=== PATIENT | female | born 1950 | race Caucasian/White ===

== ENCOUNTER → 2017-01-01 | Day surgery (SDC) | payer MEDICARE, BC ==
[2016-12-29 11:56] LABS: BASOPHILS # (AUTO) 0.1 (0.0-0.1); BASOPHILS % 0.6 % (0.0-1.0); EOSINOPHILS # (AUTO) 0.1 (0.0-0.4); EOSINOPHILS % 0.7 % (0.0-6.0); HEMATOCRIT 40.2 % (34.2-44.1); HEMOGLOBIN 13.7 g/dL (12.0-16.0); LYMPHOCYTES # (AUTO) 2.5 (1.0-3.2); LYMPHOCYTES % 31.2 % (18.0-39.1); MEAN CORPUSCULAR HEMOGLOBIN 32.5 pg (28-32); MEAN CORPUSCULAR HGB CONC 34.1 g/dL (31-35); MEAN CORPUSCULAR VOLUME 95.5 fL (81-99); MONOCYTES # (AUTO) 1.2 (0.2-0.8); MONOCYTES % 14.1 % (4.4-11.3); NEUTROPHILS # (AUTO) 4.3 (2.1-6.9); NEUTROPHILS % 52.3 % (38.7-80.0); PLATELET COUNT 234 x10e3/uL (140-360); RED BLOOD COUNT 4.21 x10e6/uL (3.6-5.1); RED CELL DISTRIBUTION WIDTH 14.1 % (11.7-14.4)
[~2017-01-01] MED LIST: ALPHA LIPOIC A600 MG PO; AMARYL2 MG PO; ATORVASTATIN CA20 MG PO; ATORVASTATIN PO; CLONIDINE PO; CLONIDINE1 EAC1 PO; CO Q-10 100 MG1 EACH PO; COQ-10100 MG PO; COQ10 SG 100 S1 EACH PO; CYMBALTA30 MG PO; ESTRADIOL1 MG PO; EXFORGE HCT 5-1 EACH PO; FENOFIBRATE; FENOFIBRATE PO; FENTANYL CITRATE/PF 100MCG/2 ML INJ ONE; FISH OIL500 M1 PO; FUROSEMIDE20 MG PO; GABAPENTIN100 MG PO; GABAPENTIN300 MG PO; HYDRALAZIN20 MG/1 ML PO; HYDRALAZINE HCL50 MG PO; HYDROCODON-ACE1 EA11 PO; HYDROCODON-ACE1 EA12 PO; JANUVIA100 MG PO; KLOR-CON 88 MEQ PO; LEVOTHYROXINE100 MCG PO; LIDOCAINE HCL 2% LOCAL INJ 5 ML SDV VIAL INJ ONE; LOSARTAN PO; LOSARTAN POTASS25 MG PO; METOPROLOL TART25 MG PO; METRONIDAZOLE GEL 1% TP; MIDAZOLAM HCL 2 MG/2 ML VIAL ONE; MONTELUKAST SOD10 MG PO; MORPHINE SULFAT15 M1 PO; MORPHINE SULFAT30 M2 PO; MORPHINE SULFATE 5 MG/ML VIAL ONE; MULTIVITAMIN PO; NASONEX17 GM; NEXIUM40 MG PO; NORCO 10-325 T1 EACH PO; NORCO 5-325 TA1 EACH PO; NORCO 7.5-3251 EACH PO; PANTOPRAZOLE PO; PANTOPRAZOLE SO40 MG PO; PREDNISONE PO; PROBIOTIC PO; PROPOFOL IV EMULSION 10 MG/ML 50 ML VIAL ONE; QUININE SULFAT324 MG PO; QVAR7.3 G1; SINGULAIR10 MG PO; TIZANIDINE HCL4 MG PO; TRILIPIX135 MG PO; VITAMIN B 12 INJ; VITAMIN B12 SL; VITAMIN C; VITAMIN D32000 UNI1 PO; VITAMIN D350000 UNIT PO; VOLTAREN PO; VOLTAREN100 GM TD; ZANTAC300 MG PO; ZINC50 M1 PO; ZOFRAN ODT4 MG PO; ZYRTEC PO; [UNRECOGNIZED DRUG - MIXTURE]; [UNRECOGNIZED DRUG - OTHER]; [UNRECOGNIZED DRUG - OTHER] OS
[2017-01-01 13:59] LABS: WBC,FECAL (FECAL LACTOFERRIN) NEGATIVE (NEGATIVE)
--- NOTE | 2017-01-01 14:32 | Operative Report ---
DATE OF PROCEDURE: January 01, 2017 REFERRING PHYSICIAN: Dr. Avila Spence. PROCEDURE PERFORMED: Colonoscopy and polypectomy. INDICATIONS FOR PROCEDURE: Colorectal cancer screening. Personal history of colon polyps. Diarrhea. MEDICATION: Patient was done under MAC. Please see anesthesiologist's note. PROCEDURE: With the patient in the left lateral decubitus position, the flexible fiberoptic Olympus colonoscope was inserted into the rectum with ease and advanced all the way to the cecum. It was then withdrawn slowly. Mucosa overlying the cecum appeared to be within normal limits. One polyp was snared from the ascending colon. The transverse colon appeared to be within normal limits. Diverticular disease was noted to involve the descending and the sigmoid colon. One polyp was hot biopsied from the sigmoid colon. One polyp was hot biopsied from the proximal rectum. The scope was then retroflexed into the distal rectum and small internal hemorrhoids were noted, none of which was actively bleeding. The scope was then straightened out. The rectosigmoid area as well as the distal rectal area were decompressed. The scope was subsequently withdrawn. Patient tolerated procedure well. Of note, procedure was carried out with the EGD scope as the regular colonoscope could not traverse the sharply angulated area in the distal sigmoid colon. IMPRESSION: 1. Ascending colon polyp snared. 1. Sigmoid colon polyp hot biopsied. 2. Diverticulosis. 3. Rectal polyp hot biopsied. 4. Internal hemorrhoids, none actively bleeding. PLAN: Follow up histology. Initiate VSL#3 one p.o. daily. Patient will need a followup colonoscopy in 3 years. Job#: [id number] EV cc:AVILA SPENCE MD
[2017-01-01 15:02] LABS: C DIFFICILE TOXIN A&B AMP PROB NEGATIVE (NEGATIVE)
== END | disposition home or self-care (01) ==
LOC: OR 08:43
PROVIDERS: ATTEND Internal Medicine Gastroenterology
DX: R19.7 Diarrhea, unspecified (principal); D12.2 Benign neoplasm of ascending colon; D12.5 Benign neoplasm of sigmoid colon; K62.1 Rectal polyp; K64.8 Other hemorrhoids; K57.30 Diverticulosis of large intestine without perforation or abscess without bleeding; K21.0 Gastro-esophageal reflux disease with esophagitis; J44.9 Chronic obstructive pulmonary disease, unspecified; I10 Essential (primary) hypertension; E11.9 Type 2 diabetes mellitus without complications; E03.9 Hypothyroidism, unspecified; G89.29 Other chronic pain; F32.9 Major depressive disorder, single episode, unspecified; F41.9 Anxiety disorder, unspecified; Z01.812 Encounter for preprocedural laboratory examination; Z68.35 Body mass index [BMI] 35.0-35.9, adult
CPT/HCPCS: 36415; 45384; 45385; 83630; 83993; 85025; 87045; 87177; 87328; 87493; 88305; J2001; J2250; J2270; 45378

== ENCOUNTER → 2019-05-01 | Day surgery (SDC) | payer MEDICARE, BC ==
[2019-04-27 11:16] LABS: BASOPHILS % 0.4 % (0.0-1.0); EOSINOPHILS % 0.8 % (0.0-6.0); HEMOGLOBIN 12.1 g/dL (12.0-16.0); LYMPHOCYTES # (AUTO) 1.2 (1.0-3.2); LYMPHOCYTES % 22.5 % (18.0-39.1); MEAN CORPUSCULAR HGB CONC 32.7 g/dL (31-35); MEAN CORPUSCULAR VOLUME 94.9 fL (81-99); MONOCYTES # (AUTO) 0.3 (0.2-0.8); NEUTROPHILS # (AUTO) 3.7 (2.1-6.9); NEUTROPHILS % 70.3 % (38.7-80.0); PLATELET COUNT 176 x10e3/uL (140-360); RED CELL DISTRIBUTION WIDTH 13.9 % (11.7-14.4)
[2019-04-27 11:40] LABS: ALANINE AMINOTRANSFERASE 38 IU/L (0-55); ALBUMIN 4.2 g/dL (3.5-5.0); ALBUMIN/GLOBULIN RATIO 1.4 (0.8-2.0); ALKALINE PHOSPHATASE 92 IU/L (40-150); ANION GAP 17.7 mmol/L (8-16); BLOOD UREA NITROGEN 24 mg/dL (7-26); BUN/CREATININE RATIO 32 (6-25); CALCIUM 11.1 mg/dL (8.4-10.2); CARBON DIOXIDE 17 mmol/L (22-29); CHLORIDE 105 mmol/L (98-107); CREATININE, SERUM 0.76 mg/dL (0.57-1.11); EST GLOMERULAR FILTRATION RATE > 60 ML/MIN (60-); GLUCOSE 168 mg/dL (74-118); POTASSIUM 4.7 mmol/L (3.5-5.1); SODIUM 135 mmol/L (136-145)
[~2019-05-01] VITALS: Ht 152.4 cm; Wt 79.4 kg
[2019-05-01] VITALS (7 sets, daily range): BP systolic 117–167; BP diastolic 64–86
[~2019-05-01] MED LIST changes: +ALPRAZOLAM 0.5 MG TAB ONE; +AMLODIPINE BESYL5 MG PO; +ASPIR 8181 MG PO; +BACLOFEN10 MG PO; +CLOPIDOGREL75 MG PO; +DIPHENHYDRAMINE HCL 25 MG CAP ONE; +FENOFIBRATE145 MG PO; +FLUOROMETHOLONE5 ML OS; +FORTEO2.4 ML SC; +HEPARIN SOD (PORCINE) 1000 UNIT/ML 30ML ONE; +HEPARIN SOD/SOD CHLORIDE 2,000 ML ONE; +IOPAMIDOL 370 MG/ML 200 ML INFUS..BTL INJ ONE; +LIDOCAINE HCL 2% LOCAL 20 ML VIAL ONE; -LIDOCAINE HCL 2% LOCAL INJ 5 ML SDV VIAL INJ ONE; +METFORMIN HCL500 MG PO; -MORPHINE SULFATE 5 MG/ML VIAL ONE; +OMEGA XL PO; -PROPOFOL IV EMULSION 10 MG/ML 50 ML VIAL ONE; +SODIUM CHLORIDE 0.9% 1000ML 1,000 ML ONE; +TURMERIC538 MG PO; +VITAMIN B-121000 MCG PO
--- OUTSIDE RECORDS SUMMARY | 2019-05-01 11:38 | XMS REPORT | Summary of Care ---
Author Author [facility] Organization [facility] Address Unknown Phone Unavailable Care Team Providers Care Rag Sorter And Cutter Name Role Phone Yasmany Woods MD PCP Reason for Visit * Reason Comments Eye Problem Encounter Details Care Team Description Date Type Department Josh Meza MD [address] [place] [address] Eye Problem 10/16/2018 Office Visit Department of Ophthalmology [address] [place] [address] [phone] Allergies Comments Active Allergy Reactions Severity Noted Date Mold 01/02/2013 Sulfa Antibiotics 01/02/2013 Omalizumab 08/03/2016 documented as of this encounter (statuses as of 10/16/2018) Medications End Date Status Medication Sig Dispensed Refills Start Date Active LEVOTHYROXINE SODIUM 1 Tab daily. 0 unknown dosage per patient Active tizanidine (ZANAFLEX) 6 Take 6 mg by 0 MG capsule mouth 3 times daily. Active fexofenadine (MOO) Take 1 Tab by 30 Tab 5 180 MG tablet mouth daily. 0 Active duloxetine (CYMBALTA) 30 Take 30 mg by 0 MG capsule mouth daily. Active atorvastatin (LIPITOR) 40 Take 40 mg by 0 MG tablet mouth daily. Active hydrocodone-acetaminophen Take 1 Tab by 0 (NORCO) 5-325 mg tablet mouth every 4 hours as needed. Active hydrALAZINE (APRESOLINE) Take 25 mg by 0 25 MG tablet mouth 3 times daily. Active nystatin (MYCOSTATIN) Apply 15 g 3 ointment topically 5 daily Active gabapentin (NEURONTIN) Take 100 mg 0 100 MG capsule by mouth 3 times daily. Active ondansetron (ZOFRAN-ODT) Take 8 mg by 0 8 mg disintegrating mouth every 8 tablet hours as needed for Nausea. Active losartan (COZAAR) 100 MG Take 100 mg 0 tablet by mouth daily. Active Quinine Sulfate 324 MG Take by 0 CAPS mouth. Active montelukast (SINGULAIR) Take 1 Tab by 30 Tab 3 10 MG tablet mouth daily. 6 Active Budesonide-Formoterol Inhale 2 1 Inhaler 6 Fumarate (SYMBICORT) Puffs by 6 160-4.5 MCG/ACT AERO mouth two times daily. Active Cetirizine HCl (ZYRTEC Take by 0 OR) mouth. Active SITagliptin Phosphate Take by 0 (JANUVIA OR) mouth. Active morphine 15 MG TBCR Take 1 Tab by 0 mouth daily. Active fluorometholone (FML) 0.1 INSTILL 1 5 mL 0 % ophthalmic suspension DROP IN LEFT 8 EYE DAILY Active budesonide (PULMICORT) Take 2 mL by 120 mL 3 0.5 MG/2ML nebulizer nebulization 8 suspensionIndications: two times Mild intermittent asthma daily. without complication, Chronic bronchitis, unspecified chronic bronchitis type Active metoprolol (LOPRESSOR) 25 Take 50 mg by 0 MG tablet mouth two times daily. Active BACLOFEN OR Take by 0 mouth 3 times daily. Active budesonide (PULMICORT) Take 2 mL by 60 mL 3 0.25 MG/2ML nebulizer nebulization 9 suspensionIndications: two times Mild intermittent asthma daily. without complication Active albuterol (PROVENTIL) Take 1 Ampule 50 Ampule 3 (2.5 mg/3 mL) 0.083% by 9 nebulizer nebulization solutionIndications: Mild every 6 hours intermittent asthma as needed for without complication Wheezing. Active albuterol (PROAIR HFA) Inhale 2 8.5 g 3 108 (90 base) mcg/act Puffs by 9 inhalerIndications: Mild mouth every 4 intermittent asthma hours as without complication needed for Wheezing. Active predniSONE (DELTASONE) 20 Take 1 Tab by 15 Tab 1 MG tabletIndications: mouth daily. 9 Chronic bronchitis, unspecified chronic bronchitis type Active levofloxacin (LEVAQUIN) Take 1 Tab by 10 Tab 1 750 MG tabletIndications: mouth daily. 9 Chronic bronchitis, unspecified chronic bronchitis type Active fluconazole (DIFLUCAN) Take 1 Tab by 10 Tab 1 150 MG tabletIndications: mouth daily. 9 Thrush Active fluorometholone (FML) 0.1 Place 1 Drop 10 mL 2 % ophthalmic suspension into the left 9 eye daily. Active metformin (GLUCOPHAGE) Take 1 Tab by 0 500 MG tablet mouth at 9 bedtime. 10/16/2018 Discontinued glimepiride (AMARYL) 1 MG Take 2 mg by 0 tablet mouth every morning. 10/16/2018 Discontinued aspirin 81 MG tablet Take 81 mg by 0 mouth daily. 10/16/2018 Discontinued difluprednate (DUREZOL) Place 1 Drop 5 mL 2 0.05 % ophthalmic into the 8 emulsion right eye 3 times daily. 10/16/2018 Discontinued trimethoprim-polymyxin b Place 1 Drop 10 mL 0 (POLYTRIM) ophthalmic into the 8 solution right eye 3 times daily. 10/16/2018 Discontinued Bromfenac Sodium Apply 1 Drop 3 mL 1 (PROLENSA) 0.07 % SOLN to eye daily. 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 Will review Dr Terry's consultation. 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 Allergic rhinitis 04/28/2010 Last Assessment & Plan: Stable, controlled on daily nasal steroids and special diet. No change in therapy. Follow-up with Dr Lopes as directed. Sinusitis, chronic 02/12/2010 Last Assessment & Plan: Much improved s/p sinus surgery. Continue present management. DYSPAREUNIA 06/13/2007 POSTMENOPAUSAL HORMONE REPLACEMENT THERAPY 10/19/2001 HYPERTENSION, BENIGN ESSENTIAL Chronic bronchitis Last Assessment & Plan: Mild exacerbation- taper steroids levaquin Stress management Next visit check IgE documented as of this encounter (statuses as of 10/16/2018) Resolved Problems Problem Noted Date Resolved Date Asthma, intrinsic 04/28/2010 05/13/2010 Last Assessment & Plan: Stable on current regimen. No change in therapy, continue the Singulair, Qvar or Pulmicort nebs daily and albuterol prn. WELL WOMAN 12/03/2005 02/12/2010 SCREENING FOR MALIGNANT NEOPLASM, VAGINA 12/03/2005 02/12/2010 SCREENING MAMMOGRAM NEC 12/03/2005 02/12/2010 SCREEING FOR OSTEOPOROSIS 12/03/2005 02/12/2010 SCREEING FOR MALIG NEOPLASM, INTESTINE NOS 03/24/2004 02/12/2010 Examination, gynecological 10/20/2001 02/12/2010 ASTHMA, INTRINSIC W/(ACUTE) EXACERBATION 04/28/2010 Last Assessment & Plan: Acute episode suspect URI induced, improving symptomatically. Slow wean the prednisone by 10 mg every 3 days. Complete the oral atb. Hycotuss syrup 1 tsp po 1-3 times daily for the next 3-4 days. Continue the Singular and change to the Advair 500/50 for 2 weeks then back to the Qvar. Pt will contact the office next week with update. Will discuss return appt then. documented as of this encounter (statuses as of 10/16/2018) Immunizations Name Administration Dates Next Due Influenza (whole) 12/21/2013, 12/12/2009 Swine Flu (H1N1) 02/13/2009 documented as of this encounter Social History Date Tobacco Use Types Packs/Day Years Used Never Smoker Smokeless Tobacco: Never Used Drinks/Week oz/Week Comments Alcohol Use No Sex Assigned at Date Recorded Not on file Industry Job Start Date Occupation Not on file Not on file Not on file Travel End Travel History Travel Start No recent travel history available. documented as of this encounter Last Filed Vital Signs Not on filedocumented in this encounter Progress Notes * Josh Meza MD - 10/16/2018 10:00 AM CDT PROGRESS NOTE: Summary: This patient is undergone a Phaco DMEK in the left eye in 2011 with a redo in 20 16 with a DMEK and then a read on the next year 2016 with a DSEK. She's also un dergone cataract surgery in the right eye back in 2017. I saw her most recently in October of last year for 3 week postop cataract visit in the right eye. At t hat visit she was doing well with a visual acuity corrected to 20/20 both eyes t he implant lens in the right eye was well centered and the fundus was normal She did well until a the end of August when she noted sudden onset of floaters in the left eye and was seen by Dr. Johnson. At that visit she continued to be 20/20 both eyes, pseudophakia both eyes, showed a Blakely ring in both eyes and had a n ormal depressed fundus exam with no detachments and no tears. She returns today for check and noting no change. HPI SY. 68 Y.O female is here for yearly pseudophakic eval OU. Pt states when looking straight somethings she sees a white wall with a corby ck dot in the left eye and It has reduced . Pt states vision is the same. Denies pain + FB OS Ocular Meds: FML QD, OS ATS OU PRN POHX: pseudophakic OD DMEK OS Last edited by Sita Corona, GIFTY on 10/16/2018 11:04 AM. (History) IMPRESSION: #1. PVD both eyes stable #2 status post DSEK OS doing well #3 pseudophakia both eyes PLAN: #1. New spectacle prescription provided per patient request #2 return in one year ATTESTATIONS: I have personally interviewed and examined the patient. I have reviewed the PMH, SH, FHX, ROS, MEDS, ALLERGIES and TECH NOTE, and have updated the computerized patient record appropriately. The review of systems is negative unless document ed otherwise in the medical record. In the event that there is documentation by the resident or fellow in the medical record, I agree with the resident/fellow's assessment and plan. Any exceptions are noted in my assessment & plan.The risks, benefits, and alternatives of treatment were discussed with the patient ( & family, If present). All questions regarding diagnosis and treatment were answered to the patient's satisfaction.This document has been prepared with the assistance of voice recognition software. Despite proof reading, some errors may have occurred.- please forgive mis-transcriptions, mis-heard words, or errors documented in this encounter Plan of Treatment Care Team Description Date Type Specialty Terrence Loza MD [address] [id number] 05/29/2019 Office Visit Pulmonology Health Maintenance Due Date Last Done Comments COLON CANCER SCREENIN1949 COLONOSCOPY MAMMOGRAM ANNUAL 1950 MEDICARE AWV 1950 TETANUS SHOT (ADULT) 1964 BMI FOLLOW UP PLAN 08/28/1967 HEPATITIS C SCREENING 08/28/1967 FALL SCREEN 2014 PNEUMOVAX >=65 (PPSV23) 2014 PREVNAR >=65 (PCV13) 2014 FLU VACCINE > 6 MONTHS 10/12/2018 01/24/2018 (Declined), 12/21/2013, 12/12/2009 OSTEOPOROSIS SCREENING Completed 09/07/2018, 09/07/2018 documented as of this encounter Implants Device Identifier Shelf Expiration Date Model / Serial / Lot Implanted Type Area Manufactur er 11/11/2011 / [id number] / Cornea Tissue - [id number] Left: Cornea [employer] Implanted: Qty: 1 on 11/03/2011 at [facility] 09/10/2014 / [id number] / Iol - [id number] [employer] One Piece - Left: Eye ROBERT [id number] Implanted: Qty: 1 on 11/03/2011 at [facility] [place] documented as of this encounter Results Not on filedocumented in this encounter Visit Diagnoses Diagnosis Posterior vitreous detachment, bilateral - Primary Pseudophakia Lens replaced by other means History of Descemet membrane endothelial keratoplasty (DMEK) documented in this encounter Insurance Type Payer Benefit Subscriber ID Effective Phone Address Plan / Dates Group Medicare MEDICARE MEDICARE xxxxxxxxxxx 2014-P [id number] [place] [address] Medicare BLUE CROSS BLUE SHIELD MEDICARE xxxxxxxxxxxx 2016-P [address] [id number] [place] [address] documented as of this encounter Advance Directives Patient Business Segment Manager Explanation Type Date Recorded Advance Directives and Living Will Power of Social Science Instructor
--- OUTSIDE RECORDS SUMMARY | 2019-05-01 11:38 | XMS REPORT | Summary of Care ---
Author Author [facility] Unknown Address Unknown Phone Unavailable Care Team Providers Care Lure Maker Name Role Phone LILI DENISE MD Unavailable Unavailable Unavailable Unavailable Functional Status Name Dates Details Functional status health issues are not documented Status: Name Dates Details Cognitive status health issues are not documented Status: Problems Name Dates Details Active medical history not documented Status: Medications Name Dates Details Medications not documented Allergies and Adverse Reactions Name Dates Details Allergy history not documented Status: Procedures Procedure Dates Details Initial Promis 29 Survey Date: 14-Apr-2018 Post Op Promis 29 Survey Date: 02-May-2018 Post Op Promis 29 Survey Date: 29-May-2018 Immunization Name Dates Details Immunizations not documented Social History Name Dates Details Unknown if ever smoked Vital Signs Date Test Result Details No Known Vitals to report Results Date Description Value Details [id number] [QLH] CBC (INCLUDES DIFF/PLT) WBC 7.8 {K/CMM} Range: 3.7-10.4 RBC 3.43 {M/CMM} (Below low threshold) Range: 4.20-5.40 Hgb 11.1 g/dl (Below low threshold) Range: 12.0-16.0 Hct 33.8 % (Below low threshold) Range: 36.0-48.0 MCV 98.5 fL (Above high threshold) Range: 80.0-98.0 MCH 32.2 pg (Above high threshold) Range: 27.0-31.0 MCHC 32.7 g/dl Range: 32.0-36.0 RDW 15.4 % (Above high threshold) Range: 11.5-14.5 Platelet 407 {K/CMM} Range: 133-450 Mean Platelet Volume 8.1 fL Range: 7.4-10.4 [id number] [QLH] CMP W/EGFR Sodium Level 139 {mEq/l} Range: 135-145 Potassium Level 5.0 {mEq/l} Range: 3.5-5.1 Chloride Level 107 {mEq/l} Range: 95-109 Carbon Dioxide 25 {mEq/l} Range: 24-32 AGAP 12.0 {mEq/l} Range: 10.0-20.0 Glucose Lvl 70 mg/dl Range: 70-99 Comments: Adult reference range values reflect the clinical guidelinesof the [employer]. Creatinine Lvl 1.00 mg/dl Range: 0.50-1.40 Blood Urea Nitrogen 22 mg/dl Range: 7-22 BUN/Creatinine Ratio 22 Range: 6-25 Total Protein 7.4 g/dl Range: 6.4-8.4 Albumin Lvl 3.8 g/dl Range: 3.5-5.0 Globulin 3.6 g/dl Range: 2.7-4.2 A/G Ratio 1.1 Range: 0.7-1.6 Calcium Level Total 8.5 mg/dl Range: 8.5-10.5 ALT 43 u/l Range: 0-65 AST 57 u/l (Above high threshold) Range: 0-37 Alk Phos 74 u/l Range: 39-136 Bili Total 0.8 mg/dl Range: 0.2-1.3 eGFR 58 {ML/MIN/1.7} Comments: The eGFR is calculated using the CKD-EPI formula. In most young, healthyindividuals the eGFR will be >90 mL/min/1.73m2. The eGFR declines with age. AneGFR of 60-89 may be normal in some populations, particularly the elderly, forwhom the CKD-EPI formula has not been extensively validated. Use of the eGFR isnot recommended in the following populations:Individuals with unstable creatinine concentrations, including patients and those with serious co-morbid conditions.Patients with extremes in muscle mass or diet.The data above are obtained from the National Kidney Disease Education Program(NKDEP) which additionally recommends that when the eGFR is used in patientswith extremes of body mass index for purposes of drug dosing, the eGFR shouldbe multiplied by the estimated BMI. [id number] [[facility]] Differential Segmented Neutrophils 60.4 % Range: 45.0-75.0 Monocytes 12.4 % (Above high threshold) Range: 2.0-12.0 Lymphocytes 24.8 % Range: 20.0-40.0 Eosinophils 2.0 % Range: 0.0-4.0 Basophils 0.4 % Range: 0.0-1.0 Segs-Bands # 4.7 {K/CMM} Range: 1.5-8.1 Lymphocytes # 1.9 {K/CMM} Range: 1.0-5.5 Monocytes # 1.0 {K/CMM} (Above high threshold) Range: 0.0-0.8 Eosinophils # 0.2 {K/CMM} Range: 0.0-0.5 RBC Morphology Normal Plt Morphology Normal [id number] [U] XRAY KNEE 3 VWS RIGHT [id number] XR KNEE 3 VWS RIGHT Images acquired, not reported on this accession number. Plan of Care Name Dates Details Planned Observations Planned Goals not documented Instructions Name Dates Details Instructions not documented Encounters Appointment; KEVIN COLEMAN, PKeya Encounter Diagnosis: Problem not documented On: 09-Feb-2018 11:30 Appointment; ILLI HASKINS M.D. Encounter Diagnosis: Problem not documented On: 25-Apr-2018 14:00 Appointment; KEVIN COLEMAN, PKenAKen Encounter Diagnosis: Problem not documented On: 05-May-2018 11:15 Appointment; LILI HASKINS M.D. Encounter Diagnosis: Problem not documented On: 31-May-2018 13:15
--- OUTSIDE RECORDS SUMMARY | 2019-05-01 11:38 | XMS REPORT ---
[facility] Address Unknown Phone Unavailable Care Team Providers Care Home Visitor Name Role Phone NIKKO DAVIS Unavailable Unavailable Timothy SHELLEY Unavailable Unavailable VAISHNAVI LONGORIA Unavailable Unavailable Payers Payer Name Policy Type Policy Number Effective Date Expiration Date Problems This patient has no known problems. Allergies, Adverse Reactions, Alerts Allergy Name Allergy Type Status Severity Reaction(s) Onset Date Inactive Date Treating Clinician Comments No Known Contrast Allergies DA Active U 2008-06-05 00:00:00 No Known Drug Allergies DA Active U 2008-06-05 00:00:00 No Known Food Allergies DA Active U 2008-06-05 00:00:00 No Known Other Allergies DA Active U 2008-06-05 00:00:00 No Known Drug Intolerances DA Active U 2001-08-25 00:00:00 Medications This patient has no known medications. Results Test Description Test Time Test Comments Text Results Atomic Results Result Comments MAMMOGRAPHY DIGITAL SCR BILAT 2019-03-12 09:33:00 [place] [address] Patient Name: ZURDO BERMUDEZ MR #: [id number] : 1950 Age/Sex: 68/F Req #: [id number] Adm Physician: Ordered by: NIKKO DAVIS MD Report #: [id number] Location: MAMMO Room/Bed: Procedure: [id number] MG/MAMMOGRAPHY DIGITAL SCR BILAT Exam Date: 03/12/19 Exam Time: 0850 REPORT STATUS: Signed #[id number] - MGSCRBIL #BILATERAL DIGITAL SCREENING MAMMOGRAM WITH CAD: 03/12/2019 CLINICAL: Routine screening. Comparison is made to exams dated: 03/08/2018 mammogram and 02/15/2017 mammogram - [facility]. The tissue of both breasts is heterogeneously dense. This may lower the sensitivity of mammography. Current study was also evaluated with a Computer Aided Detection (CAD) system. There are benign calcifications in caro th breasts. There also are benign vascular calcifications in the right breast. Additionally there are benign lymph nodes in the right breast. No significant masses, calcifications, or other findings are seen in either breast. There has been no significant interval change. IMPRESSION: BENIGN There is no mammographic evidence of malignancy. A 1 year screening mammogram is recommended. The patient will be notified by letter of the results. DELPHINE madrid/shemar:03/26/2019 12:06:10 Java Application Engineer: Any LAZARO)(Jamie), [facility] letter sent: Compared to Prior B9 Mammogram BI-RADS: 2 Benign Dictated By: DELPHINE FERRELL MD 1206 Transcribed By: SHEMAR on 03/26/19 1206 COPY TO: NIKKO DAVIS MD POCT-GLUCOSE METER 2017-09-21 06:38:00 POC-GLUCOSE METER (BEAKER) (test wzex=2127) 135 mg/dL 70-110 TESTED AT [address] [address] POCT-GLUCOSE ROUYR2754-19-30 08:13:00* Test Item Value Reference Range Comments POC-GLUCOSE METER (BEAKER) (test bbag=7401) 199 mg/dL 70-110 TESTED AT [address] [address] [address] CERVICAL SPINE WO [facility] [address] [place], [place] [address] Patient Name: ZURDO BERMUDEZ MR #: [id number] : 1950 Age/Sex: 66/F Req #: [id number] Adm Physician: Ordered by: VAISHNAVI LONGORIA MD Report #: [id number] Location: MRI Room/Bed: Procedure: [id number] CT/CT CERVICAL SPINE WO Exam Date: 12/30/16 Exam Time: 1450 REPORT STATUS: Signed History: Neck and shoulder pain for one month Comparison studies: No ne Technique: Axial images were obtained through the cervical region. Coronal and sagittal images reconstructed from the axial data. Intravenous con trast: None Findings: Atlantoaxial articulation: Intact Alignment: S traightening of the cervical lordosis No scoliosis. Cervicomedullary junction: No abnormalities. Patent foramen magnum. Soft tissues: No gross inflammatory abnormalities. Calcifications at the bilateral carotid siphons Surgical ch anges: Anterior fusion plate and screws from C5 through C7 no significant alexia hardware lucency. Vertebrae: No fractures, neoplasm or infection. D egenerative changes: C2-C3: Right uncinate process hypertrophy and facet hypertrophy results in mild right foraminal narrowing without significant mary l stenosis . C3-4: Right uncinate process hypertrophy and bilateral facet process hypertrophy (severe on the right) results in moderate right foraminal narrowing without significant canal stenosis . C4-5: Left facet hypert rophy without significant canal stenosis and mild left foraminal narrowing . C5-6: Left uncinate process hypertrophy and facet hypertrophy results in no significant canal stenosis and mild left foraminal narrowing . C6-7: Patent canal and foramina . C7-T1: Patent spinal canal and foramina . IMPRESSION: 1. Anterior fusion of the cervical spine spanning from C5 t hrough C7 without evidence of perihardware lucency. 2. Moderate right fo raminal narrowing at C3-4 secondary to degenerative changes. Other mild degene rative changes results in mild multilevel foraminal narrowing without signific ant canal stenosis Signed by: DR Juan Mcdermott M.D. on 12/30/2016 3 :38 PM Dictated By: JUAN BABB MD 37 Transcribed By: ROBY on 12/30/161537 COPY TO: VAISHNAVI LONGORIA MD MRI SPINE CERVICAL WO [place] [address] Patient Name: ZURDO BERMUDEZ MR #: [id number] : 1950 Age/Sex: 66/F Req #: [id number] Adm Physician: Ordered by: VAISHNAVI LONGORIA MD Report #: [id number] Location: MRI Room/Bed: Procedure: [id number] MRI/MRI SPINE CERVICAL WO Ex am Date: Exam Time: REPORT STATUS: Signed EXAMINATION: MRI of the cervical spine without contrast HISTORY: Neck higinio n, bilateral upper stomach pain for the last year COMPARISON: Cervical spine C T on 12/30/2016 TECHNIQUE: Sagittal T1, T2, STIR; axial T2, gradient echo. FINDINGS: Curvature: Normal lordosis. Vertebrae: Status post ACDF wi th solid interbody fusion from C5 through C7. No acute fractures, infection or neoplasm Foramen magnum: No mass, Chiari malformation, or basilar invaginatio n. Spinal Cord: Normal size and signal intensity. Soft Tissues: Unremark able. Degenerative changes: C1-C2: Unremarkable. C2-C3: Fusion of the posterior elements on the right without canal or foraminal sten osis. C3-C4: Small disc osteophyte, bilateral uncovertebral and promin ent facet arthrosis. Severe right and mild left foraminal stenosis. Minimal anterolisthesis. C4-C5: Disc osteophyte, bilateral uncovertebral and f acet arthroses. Mild spinal canal and mild to moderate bilateral foraminal pau nosis. C5-C6: Fused level without significant stenoses C6-C7 : Fused level without significant stenoses C7-T1: Mild symmetric disc bulge and facet arthrosis. No significant canal or foraminal stenosis IMP RESSION: 1. Severe degenerative right foraminal stenosis at C3-C4. 2. Mild degenerative spinal canal mild to moderate bilateral foraminal stenosis at C4-C5. 3. Status post ACDF with solid interbody fusion from C5 to C7. No stenosis. Signed by: Dr. Hien Tenorio M.D. on 12/30/2016 5:01 PM Dictated By: HIEN TENORIO MD 1701 COPY TO: SUYAPA LONGORIA MD SPINE CERVICAL AP LAT FLEX EXT [place] [address] Patient Name: ZURDO BERMUDEZ MR #: [id number] : 1950 Age/Sex: 66/F Req #: [id number] Adm Physician: Ordered by: VAISHNAVI LONGORIA MD Report #: [id number] [facility]: [facility] Room/Bed: Procedure: [id number] DX/SPINE CERVICAL AP LAT FLEX EXT Exam Date: 12/16/16 Exam Time: 1445 REPORT STATUS: Signed PROCEDURE: C-SPINE AP AND LAT WITH FLEX AND EXT COMP ARISON: [facility], DX, SPINE CERVICAL AP T LAT FLEX T EXT, , 7:45. INDICATIONS: EVALUATE FUSION STATUS FINDINGS: The cervical spine is visualized in the lateral view from the skull base to C6. Postoperative changes of anterior cervical spine fusion C5-C7. Generali zed osteopenia. Minimal interval fusion since prior exam dated 12/31/2015. V ertebral bodies are well aligned in the lateral view. Minimal grade 1 anteroli sthesis of C4 on C5 and grade 1 anterolisthesis of C3 on C4 on flexion view w hich is not seen in the neutral or extension view. Degenerative disc change s, predominantly at C3-C4. . CONCLUSION: 1. Status post anterior f usion C5-C7, with minimal interval bony fusion since prior exam dated 016. 2. Minimal grade 1 anterolisthesis of C4 on C5 and grade 1 anterolisth esis of C3 on C4 on flexion view, which is not seen in neutral or extension v iew, stable since the prior exam. Joes Joaquin M.D. Dictated by : Jose Joaquin M.D. on 12/16/2016 at 17:11 Electronically approved by: Jose Joaquin M.D. on 12/16/2016 at 17:11 Dictated By: JOSE JOAQUIN MD 1 711 Transcribed By: MONIKA on 12/16/16 1711 COPY TO: VAISHNAVI LONGORIA MD
--- NOTE | 2019-05-01 12:45 | NUR ---
1245 Addendum: 05/01/19 at 1803 by Neha Watts RN 1245pm RECEIVING NOTE TOOLROOM CLERK RECOVERY DEPT............................................................... Bedside report received from Jay LEVINE. Identifierx2. Alert oriented and appropriate, PERRLA, respirations even and unlabored to room air. Pulses x4 extremities equal and strong. Pedal pulses PT/DP X4 .Cap fill brisk < 3 sec. TR band down at 1300pm Skin warm and dry integrity appears D/I. IV 20g to left hand 100cchr, presents healthy w/o s/s of infiltration or complaint. Abdomen soft and supple. pt offered toileting, denies need to urinate or defecate. No personal affects with patient. Family XXXXX. Pt and family verbalizes understanding of POC. Currently w/o complaint of pain or need. ds/rn
--- NOTE | 2019-05-01 13:00 | NUR ---
1300pm RADIAL COMPRESSION REMOVAL NOTE: Initial Cuff volume 12 cc 1300p -2cc Removed No hematoma/bleeding noted with normal neurovascular function. 1315p -5cc Removed No hematoma/ bleeding noted with normal neurovascular function. 1330p -5cc Removed No hematoma/bleeding noted with normal neurovascular function. Air removal completed. Stasis achieved sterile 2x2,Tegaderm, Coban dressing No hematoma, bleeding noted with normal neurovascular function. Wrist splint in place. Pt instructed on POC. Ds/Rn
--- NOTE | 2019-05-01 13:32 | Operative Report ---
DATE OF PROCEDURE: 05/01/2019 SURGEON: Luan Clifton MD INDICATIONS: Coronary artery disease, abnormal stress test. PROCEDURES PERFORMED: 1. Left heart catheterization, selective coronary angiography. 2. Deployment of right wrist TR band. COMPLICATIONS: None. BLOOD LOSS: Minimal. RECOMMENDATIONS: Medical therapy. DESCRIPTION OF PROCEDURE: Access was obtained in the right radial artery. A 5-Czech sheath was placed. Coronary angiography demonstrated calcified left anterior descending artery, 50% stenosis proximally. Remaining vessel had diffuse 30% to 50% stenosis. Circumflex and right coronary artery had [id number] disease, 30% to 50% luminal stenosis. No critical stenosis or occlusions were noted. No intervention deemed necessary. Guide and sheath were removed. TR band applied. The patient discharged home the same day. Luan Clifton MD KSB/MODL /[id number]
--- NOTE | 2019-05-01 14:00 | NUR ---
1400pm ROOFING APPRENTICE RECOVERY DISCHARGE NURSING NOTE Pt meets DC criteria. Rt TR band assessed for s/s of complication and presence of hematoma. Skin warm, dry, no discolor, and pulses present. IV removed from left hand, Distal tip appears intact. VS WNL. Pt denies pain, sob, or need at this time. Family at bedside. Review of discharge paperwork and follow up instructions. verbalized understanding. Pt to wheelchair and transported to front of hospital. Transferred to private vehicle under own strength w/o incident with DC paperwork in hand. -kamilah/jamel
== END | disposition home or self-care (01) ==
LOC: CATH LAB 11:35
PROVIDERS: ATTEND Internal Medicine Interventional Cardiology
DX: I25.118 Atherosclerotic heart disease of native coronary artery with other forms of angina pectoris (principal); R94.39 Abnormal result of other cardiovascular function study; I10 Essential (primary) hypertension; E78.5 Hyperlipidemia, unspecified; Z01.812 Encounter for preprocedural laboratory examination; Z79.84 Long term (current) use of oral hypoglycemic drugs; Z79.02 Long term (current) use of antithrombotics/antiplatelets; Z68.32 Body mass index [BMI] 32.0-32.9, adult
CPT/HCPCS: 36415 ×2; 80053; 82948; 85025; 93454; C1769; C1887; J1644; J2001; J2250; J3010; J7030; Q9967; 99152

== ENCOUNTER 2019-06-29 15:24 | Emergency (ER) | payer MEDICARE, BC ==
[~2019-06-29] VITALS: Ht 152.4 cm; Wt 82.2 kg
[~2019-06-29 15:24] MED LIST changes: -ALPRAZOLAM 0.5 MG TAB ONE; -DIPHENHYDRAMINE HCL 25 MG CAP ONE; -FENTANYL CITRATE/PF 100MCG/2 ML INJ ONE; -HEPARIN SOD (PORCINE) 1000 UNIT/ML 30ML ONE; -HEPARIN SOD/SOD CHLORIDE 2,000 ML ONE; -IOPAMIDOL 370 MG/ML 200 ML INFUS..BTL INJ ONE; -LIDOCAINE HCL 2% LOCAL 20 ML VIAL ONE; -MIDAZOLAM HCL 2 MG/2 ML VIAL ONE; -SODIUM CHLORIDE 0.9% 1000ML 1,000 ML ONE
--- OUTSIDE RECORDS SUMMARY | 2019-06-29 15:30 | XMS REPORT | Summary of Care ---
Author Author Yolanda Charles M.A. Unknown Address Unknown Phone Unavailable Care Team Providers Care Mis Director Name Role Phone LILI HASKINS M.D. Unavailable Unavailable JORDY SIMON, JUANI Mcdonald Unavailable Unavailable LILI DENISE MD Unavailable Unavailable Unavailable Unavailable [...] not documented Status: Procedures Procedure Dates Details [U] XRAY KNEE 3 VWS RIGHT 10624 Date: 21-May-2019 Immunization Name Dates Details Immunizations not documented Social History Name Dates Details Tobacco smoking consumption unknown (finding) Vital Signs Date Test Result Details No Known Vitals to report Results Date Description Value Details Results not documented Plan of Care Name Dates Details Planned Observations Planned Goals not documented Planned Encounters Appointment; LILI HASKINS M.D. On: 23-May-2019 9:45 Interventions Provided Labs/Procedures/Imaging* [U] XRAY KNEE 3 VWS RIGHT 42696; To Be Done: 23 May 2019 Instructions Name Dates Details Instructions not documented Encounters Appointment; KEVIN RAMIREZ, PKeya Encounter Diagnosis: Problem not documented On: 09-Feb-2018 11:30 Appointment; LILI HASKINS M.D. Encounter Diagnosis: Problem not documented On: 25-Apr-2018 14:00 Appointment; KEVIN RAMIREZ PKeya Encounter Diagnosis: Problem not documented On: 05-May-2018 11:15 Appointment; LIIL HASKINS M.D. Encounter Diagnosis: Problem not documented On: 31-May-2018 13:15 Appointment; LILI HASKINS M.D. Encounter Diagnosis: Problem not documented On: 23-May-2019 9:45
--- NOTE | 2019-06-29 17:07 | Diagnostic Imaging Report ---
EXAM: CT Abdomen and Pelvis WITHOUT intravenous contrast INDICATION: Left lower quadrant abdominal pain COMPARISON: CT abdomen and pelvis of 06/30/2016 TECHNIQUE: Abdomen and pelvis were scanned utilizing a multidetector helical scanner from the lung base to the pubic symphysis without administration of IV contrast. Coronal and sagittal reformations were obtained. IV CONTRAST: None ORAL CONTRAST: Water COMPLICATIONS: None RADIATION DOSE: Total DLP: 1174 mGy*cm Dose modulation, iterative reconstruction, and/or weight based adjustment of the mA/kV was utilized to reduce the radiation dose to as low as reasonably achievable. FINDINGS: LOWER THORAX: Normal. HEPATOBILIARY: No focal liver lesion. No biliary ductal dilation. Status post cholecystectomy. SPLEEN: No splenomegaly. PANCREAS: No focal masses or ductal dilatation. ADRENALS: No adrenal nodules. KIDNEYS/URETERS: No hydronephrosis, stones, or solid mass lesions. PELVIC ORGANS/BLADDER: Hysterectomy. PERITONEUM / RETROPERITONEUM: No free air or fluid. LYMPH NODES: No lymphadenopathy. VESSELS: Moderate atherosclerotic calcifications of the nonaneurysmal abdominal aorta and major branches. GI TRACT: No abnormal bowel thickening. No bowel obstruction. BONES AND SOFT TISSUES: Left posterior implanted stimulator device with lead terminating at the level of T8-9. Postoperative findings of L2-3 lumbar fusion. Anterolisthesis at L3-4. Multilevel degenerative changes. IMPRESSION: No acute findings in the abdomen or pelvis. Signed by: Julio Cesar Mcelroy MD on 06/29/2019 5:04 PM
[2019-06-29 17:13] VITALS: BP 172/75
== END 2019-06-29 17:23 | disposition home or self-care (01) ==
LOC: FSED 15:24
DX: R10.32 Left lower quadrant pain (principal); R10.12 Left upper quadrant pain; R19.7 Diarrhea, unspecified; I10 Essential (primary) hypertension; E11.9 Type 2 diabetes mellitus without complications; E78.5 Hyperlipidemia, unspecified; K86.9 Disease of pancreas, unspecified
CPT/HCPCS: 74176; 80053; 80076; 81003; 85025; 99284

== ENCOUNTER → 2020-05-27 | Outpatient (CLI) | payer MEDICARE, BC | LOC: MAMMO 11:57 | PROVIDERS: ATTEND Internal Medicine | DX: Z12.31 Encounter for screening mammogram for malignant neoplasm of breast (principal) | CPT/HCPCS: 77067 ==

== ENCOUNTER → 2020-08-22 | Outpatient (CLI) | payer MEDICARE, BC ==
[~2020-08-22] MED LIST changes: +DIATRIZOATE MEGL/DIATRIZOA SOD 30 ML BTL PO ONE; +IOPAMIDOL 370 MG/ML 200 ML INFUS..BTL INJ ONE; +SODIUM CHLORIDE 0.9% 50ML 50 ML ONE
== END ==
LOC: CT 07:25
PROVIDERS: ATTEND Internal Medicine Gastroenterology
DX: R19.05 Periumbilic swelling, mass or lump (principal)
CPT/HCPCS: 74177; Q9967

== ENCOUNTER → 2020-09-03 | Day surgery (SDC) | payer MEDICARE, BC ==
[2020-08-29 12:17] LABS: BASOPHILS # (AUTO) 0.1 (0.0-0.1); BASOPHILS % 0.6 % (0.0-1.0); EOSINOPHILS # (AUTO) 0.3 (0.0-0.4); EOSINOPHILS % 3.4 % (0.0-6.0); HEMATOCRIT 40.6 % (34.2-44.1); HEMOGLOBIN 13.5 g/dL (12.0-16.0); LYMPHOCYTES # (AUTO) 3.4 (1.0-3.2); MEAN CORPUSCULAR HEMOGLOBIN 30.7 pg (28-32); MEAN CORPUSCULAR HGB CONC 33.3 g/dL (31-35); MEAN CORPUSCULAR VOLUME 92.3 fL (81-99); MONOCYTES # (AUTO) 1.1 (0.2-0.8); MONOCYTES % 12.2 % (4.4-11.3); NEUTROPHILS # (AUTO) 4.1 (2.1-6.9); NEUTROPHILS % 44.9 % (38.7-80.0); PLATELET COUNT 256 x10e3/uL (140-360); RED CELL DISTRIBUTION WIDTH 13.9 % (11.7-14.4)
[~2020-09-03] MED LIST changes: -DIATRIZOATE MEGL/DIATRIZOA SOD 30 ML BTL PO ONE; +FENTANYL CITRATE/PF 100MCG/2 ML INJ ONE; -IOPAMIDOL 370 MG/ML 200 ML INFUS..BTL INJ ONE; +LIDOCAINE HCL 2% LOCAL INJ 5 ML SDV VIAL INJ ONE; +PROPOFOL IV EMULSION 10 MG/ML 20 ML VIAL ONE; -SODIUM CHLORIDE 0.9% 50ML 50 ML ONE
[2020-09-03 15:45] VITALS: BP 119/62
== END | disposition home or self-care (01) ==
LOC: OR 10:21
PROVIDERS: ATTEND Internal Medicine Gastroenterology
DX: K29.70 Gastritis, unspecified, without bleeding (principal); D12.0 Benign neoplasm of cecum; K20.90 Esophagitis, unspecified without bleeding; K25.9 Gastric ulcer, unspecified as acute or chronic, without hemorrhage or perforation; K26.9 Duodenal ulcer, unspecified as acute or chronic, without hemorrhage or perforation; K44.9 Diaphragmatic hernia without obstruction or gangrene; K21.9 Gastro-esophageal reflux disease without esophagitis; K57.30 Diverticulosis of large intestine without perforation or abscess without bleeding; K59.09 Other constipation; K64.8 Other hemorrhoids; G47.33 Obstructive sleep apnea (adult) (pediatric); E11.9 Type 2 diabetes mellitus without complications; R00.1 Bradycardia, unspecified; E03.9 Hypothyroidism, unspecified; I10 Essential (primary) hypertension; R19.05 Periumbilic swelling, mass or lump; Z88.2 Allergy status to sulfonamides; Z91.018 Allergy to other foods; Z88.8 Allergy status to other drugs, medicaments and biological substances; Z01.810 Encounter for preprocedural cardiovascular examination; Z01.812 Encounter for preprocedural laboratory examination; Z20.822 Contact with and (suspected) exposure to COVID-19; Z79.02 Long term (current) use of antithrombotics/antiplatelets; Z79.82 Long term (current) use of aspirin; Z79.84 Long term (current) use of oral hypoglycemic drugs; Z68.32 Body mass index [BMI] 32.0-32.9, adult; Z86.73 Personal history of transient ischemic attack (TIA), and cerebral infarction without residual deficits; Z86.711 Personal history of pulmonary embolism; Z87.01 Personal history of pneumonia (recurrent)
CPT/HCPCS: 36415 ×2; 43239; 45385; 82948; 85025; 88305; 88312; 93005; C9113; J2001; J2704; J3010; U0002; 45378

== ENCOUNTER → 2020-11-03 | Day surgery (SDC) | payer MEDICARE, BC ==
[2020-10-31 12:07] LABS: BASOPHILS % 0.5 % (0.0-1.0); EOSINOPHILS # (AUTO) 0.2 (0.0-0.4); EOSINOPHILS % 2.6 % (0.0-6.0); HEMOGLOBIN 12.1 g/dL (12.0-16.0); MEAN CORPUSCULAR HEMOGLOBIN 30.8 pg (28-32); MEAN CORPUSCULAR HGB CONC 32.7 g/dL (31-35); MEAN CORPUSCULAR VOLUME 94.1 fL (81-99); MONOCYTES # (AUTO) 0.9 (0.2-0.8); MONOCYTES % 10.7 % (4.4-11.3); NEUTROPHILS # (AUTO) 4.2 (2.1-6.9); PLATELET COUNT 216 x10e3/uL (140-360); RED BLOOD COUNT 3.93 x10e6/uL (3.6-5.1); RED CELL DISTRIBUTION WIDTH 14.6 % (11.7-14.4)
[~2020-11-03] MED LIST changes: -FENTANYL CITRATE/PF 100MCG/2 ML INJ ONE; +INSULIN REGULAR, HUMAN 100 UNIT/1 ML ONE; -LIDOCAINE HCL 2% LOCAL INJ 5 ML SDV VIAL INJ ONE; -PROPOFOL IV EMULSION 10 MG/ML 20 ML VIAL ONE
[2020-11-03 08:30] VITALS: BP 131/70
== END | disposition home or self-care (01) ==
LOC: OR 07:09
PROVIDERS: ATTEND Internal Medicine Gastroenterology
DX: K29.70 Gastritis, unspecified, without bleeding (principal); K20.90 Esophagitis, unspecified without bleeding; K25.9 Gastric ulcer, unspecified as acute or chronic, without hemorrhage or perforation; K31.89 Other diseases of stomach and duodenum; G47.33 Obstructive sleep apnea (adult) (pediatric); E11.9 Type 2 diabetes mellitus without complications; I10 Essential (primary) hypertension; J30.2 Other seasonal allergic rhinitis; I69.854 Hemiplegia and hemiparesis following other cerebrovascular disease affecting left non-dominant side; Z88.2 Allergy status to sulfonamides; Z91.048 Other nonmedicinal substance allergy status; Z88.8 Allergy status to other drugs, medicaments and biological substances; Z01.812 Encounter for preprocedural laboratory examination; Z20.822 Contact with and (suspected) exposure to COVID-19; Z79.02 Long term (current) use of antithrombotics/antiplatelets; Z79.82 Long term (current) use of aspirin; Z79.84 Long term (current) use of oral hypoglycemic drugs
CPT/HCPCS: 36415 ×2; 43239; 82948; 85025; 88305; 88312; U0002; J1817

== ENCOUNTER → 2022-02-09 | Outpatient (CLI) | payer MEDICARE, BC ==
[~2022-02-09] MED LIST changes: -INSULIN REGULAR, HUMAN 100 UNIT/1 ML ONE
== END ==
LOC: MAMMO 09:30
PROVIDERS: ATTEND Internal Medicine
DX: Z12.31 Encounter for screening mammogram for malignant neoplasm of breast (principal)
CPT/HCPCS: 77067

== ENCOUNTER 2022-03-04 15:34 | Inpatient (IN) | payer MEDICARE, BC ==
[~2022-03-04] VITALS: Ht 152.4 cm; Wt 73.5 kg
[2022-03-04] MEDS ORDERED: ONDANSETRON HCL INJ 2MG/ML 2ML 2 MG/ML VIAL IV STA (16:52)
[2022-03-04] MEDS ORDERED: SODIUM CHLORIDE 0.9% 1000ML 1,000 ML IV STA ×2 (16:52→16:54)
[2022-03-04 17:08] LABS: BASOPHILS # (AUTO) 0.1 (0.0-0.1); BASOPHILS % 0.8 % (0.0-1.0); EOSINOPHILS % 0.5 % (0.0-6.0); LYMPHOCYTES # (AUTO) 1.7 (1.0-3.2); LYMPHOCYTES % 25.4 % (18.0-39.1); MEAN CORPUSCULAR HEMOGLOBIN 31.1 pg (28-32); MEAN CORPUSCULAR HGB CONC 30.3 g/dL (31-35); MEAN CORPUSCULAR VOLUME 102.5 fL (81-99); MONOCYTES # (AUTO) 0.6 (0.2-0.8); MONOCYTES % 8.6 % (4.4-11.3); NEUTROPHILS # (AUTO) 4.2 (2.1-6.9); NEUTROPHILS % 63.3 % (38.7-80.0); PLATELET COUNT 325 x10e3/uL (140-360); RED BLOOD COUNT 3.22 x10e6/uL (3.6-5.1); RED CELL DISTRIBUTION WIDTH 15.4 % (11.7-14.4)
[2022-03-04 17:20] LABS: ALBUMIN 4.4 g/dL (3.5-5.0); ALBUMIN/GLOBULIN RATIO 1.4 (0.8-2.0); ANION GAP 24.2 mmol/L (8-16); CALCIUM 9.6 mg/dL (8.4-10.2); CREATININE, SERUM 1.42 mg/dL (0.57-1.11); POTASSIUM 4.2 mmol/L (3.5-5.1)
[2022-03-04 17:26] LABS: CREATINE KINASE MB 1.3 ng/mL (0-5.0)
[2022-03-04] MEDS ORDERED: IOPAMIDOL 370 MG/ML 100 ML INFUS..BTL INJ ONE (17:54)
[2022-03-04] MEDS ORDERED: Morphine 2mg Syringe 2 MG/ML SYR IV PRN (19:15)
[2022-03-04 20:44] VITALS: BP 97/63
[2022-03-04] MEDS: SODIUM CHLORIDE 0.9% 1000ML 1,000 ML IV SCH (22:29)
[2022-03-04] MEDS: METRONIDAZOLE 500MG/NS 100ML 100 ML IV SCH (22:29)
[2022-03-05] VITALS (7 sets, daily range): BP systolic 97–139; BP diastolic 63–85
[2022-03-05] MEDS ORDERED: NEURONTIN300 MG PO (00:33)
[2022-03-05] MEDS ORDERED: ONDANSETRON HCL8 MG PO (00:33)
[2022-03-05] MEDS ORDERED: CLOPIDOGREL75 MG PO (00:33)
[2022-03-05] MEDS ORDERED: MYRBETRIQ25 MG PO (00:33)
[2022-03-05] MEDS ORDERED: HYDRALAZINE HCL50 MG PO (00:33)
[2022-03-05] MEDS ORDERED: METFORMIN HCL500 MG PO (00:33)
[2022-03-05] MEDS ORDERED: DULOXETINE HCL30 MG PO (00:33)
[2022-03-05] MEDS ORDERED: ATORVASTATIN CA40 MG PO (00:33)
[2022-03-05] MEDS ORDERED: BACLOFEN10 MG PO (00:33)
[2022-03-05] MEDS ORDERED: AMLODIPINE BESY10 MG PO (00:33)
[2022-03-05] MEDS ORDERED: JANUVIA50 MG PO (00:33)
[2022-03-05] MEDS ORDERED: SYNTHROID150 MCG PO (00:33)
[2022-03-05] MEDS ORDERED: FENOFIBRATE54 MG PO (00:33)
[2022-03-05] MEDS ORDERED: DICYCLOMINE HCL10 MG PO (00:33)
[2022-03-05] MEDS ORDERED: METOPROLOL SUCC25 MG PO (00:33)
[2022-03-05] MEDS ORDERED: LOSARTAN POTAS100 MG PO (00:33)
[2022-03-05] MEDS ORDERED: MORPHINE SULFAT15 M1 PO (00:33)
[2022-03-05] MEDS ORDERED: SUCRALFATE1 GM PO (00:33)
[2022-03-05] MEDS: METRONIDAZOLE 500MG/NS 100ML 100 ML IV SCH ×5 (01:07→23:08)
[2022-03-05] MEDS: SODIUM CHLORIDE 0.9% 1000ML 1,000 ML IV SCH ×3 (03:15→19:37)
[2022-03-05 05:51] LABS: BASOPHILS % 0.6 % (0.0-1.0); EOSINOPHILS # (AUTO) 0.1 (0.0-0.4); EOSINOPHILS % 1.8 % (0.0-6.0); HEMATOCRIT 33.5 % (34.2-44.1); LYMPHOCYTES # (AUTO) 2.3 (1.0-3.2); LYMPHOCYTES % 36.8 % (18.0-39.1); MEAN CORPUSCULAR HEMOGLOBIN 30.3 pg (28-32); MEAN CORPUSCULAR HGB CONC 29.9 g/dL (31-35); MEAN CORPUSCULAR VOLUME 101.5 fL (81-99); MONOCYTES # (AUTO) 0.6 (0.2-0.8); MONOCYTES % 8.8 % (4.4-11.3); NEUTROPHILS # (AUTO) 3.2 (2.1-6.9); NEUTROPHILS % 50.7 % (38.7-80.0); PLATELET COUNT 275 x10e3/uL (140-360); RED CELL DISTRIBUTION WIDTH 15.2 % (11.7-14.4)
[2022-03-05] MEDS: ONDANSETRON HCL INJ 2MG/ML 2ML 2 MG/ML VIAL IV PRN ×4 (06:09→17:16)
[2022-03-05 06:12] LABS: ANION GAP 20.8 mmol/L (8-16); CALCIUM 9.4 mg/dL (8.4-10.2); CREATININE, SERUM 1.01 mg/dL (0.57-1.11); POTASSIUM 3.8 mmol/L (3.5-5.1)
[2022-03-05 11:59] LABS: CLARITY,URINE CLEAR (CLEAR); COLOR,URINE YELLOW (YELLOW); KETONES,URINE NEGATIVE (NEGATIVE); LEUKOCYTE ESTERASE ,URINE NEGATIVE (NEGATIVE); NITRITE,URINE NEGATIVE (NEGATIVE); PROTEIN,URINE DIPSTICK NEGATIVE (NEGATIVE); URINE UROBILINOGEN 0.2 mg/dL (0.2 - 1)
[2022-03-05 12:08] LABS: BACTERIA,URINE MODERATE /HPF; EPITHELIAL CELLS,URINE FEW /LPF; RBC,URINE 0-5 /HPF (0-5); WBC,URINE (MAN) 0-5 /HPF (0-5)
[2022-03-05] MEDS ORDERED: DICYCLOMINE HCL 20 MG TAB PO SCH (12:30)
[2022-03-05] MEDS ORDERED: DICYCLOMINE HCL 20 MG TAB PO ONE (12:30)
[2022-03-05] MEDS ORDERED: DICYCLOMINE HCL 10 MG CAP PO SCH (15:00)
[2022-03-05] MEDS: DICYCLOMINE HCL 20 MG TAB PO SCH ×2 (16:33→23:08)
[2022-03-06] VITALS (7 sets, daily range): BP systolic 116–147; BP diastolic 75–90
[2022-03-06 03:02] LABS: % IRON SATURATION 19 % (15-50); IRON 99 ug/dL (50-170); TOTAL IRON BINDING CAPACITY 512 ug/dL (261-478); TRANSFERRIN 366 mg/dL (180-382)
[2022-03-06] MEDS: METRONIDAZOLE 500MG/NS 100ML 100 ML IV SCH ×4 (06:00→23:46)
[2022-03-06 06:13] LABS: BASOPHILS # (AUTO) 0.1 (0.0-0.1); BASOPHILS % 1.1 % (0.0-1.0); EOSINOPHILS # (AUTO) 0.1 (0.0-0.4); EOSINOPHILS % 2.4 % (0.0-6.0); HEMATOCRIT 37.3 % (34.2-44.1); HEMOGLOBIN 11.2 g/dL (12.0-16.0); LYMPHOCYTES # (AUTO) 1.7 (1.0-3.2); LYMPHOCYTES % 31.5 % (18.0-39.1); MEAN CORPUSCULAR HEMOGLOBIN 30.4 pg (28-32); MEAN CORPUSCULAR VOLUME 101.1 fL (81-99); MONOCYTES # (AUTO) 0.5 (0.2-0.8); MONOCYTES % 9.2 % (4.4-11.3); NEUTROPHILS % 54.7 % (38.7-80.0); PLATELET COUNT 294 x10e3/uL (140-360); RED BLOOD COUNT 3.69 x10e6/uL (3.6-5.1); RED CELL DISTRIBUTION WIDTH 14.6 % (11.7-14.4)
[2022-03-06 06:33] LABS: ANION GAP 20.3 mmol/L (8-16); CALCIUM 9.4 mg/dL (8.4-10.2); CREATININE, SERUM 0.84 mg/dL (0.57-1.11); POTASSIUM 3.3 mmol/L (3.5-5.1)
[2022-03-06] MEDS ORDERED: PANTOPRAZOLE SOD 40 MG TABEC PO SCH (07:30)
[2022-03-06] MEDS: ONDANSETRON HCL INJ 2MG/ML 2ML 2 MG/ML VIAL IV PRN ×4 (07:50→21:10)
[2022-03-06] MEDS: METOCLOPRAMIDE HCL 10 MG/2ML VIAL IV SCH ×4 (09:13→20:43)
[2022-03-06] MEDS: SODIUM CHLORIDE 0.9% 1000ML 1,000 ML IV SCH (09:13)
[2022-03-06] MEDS ORDERED: FOLIC ACID 1 MG TAB PO NR (09:30)
[2022-03-06] MEDS ORDERED: FOLIC ACID 1 MG TAB PO ONE (09:30)
[2022-03-06] MEDS ORDERED: CYANOCOBALAMIN INJ 1,000 MCG/ML VIAL IM ONE (09:30)
[2022-03-06] MEDS ORDERED: CYANOCOBALAMIN INJ 1,000 MCG/ML VIAL IM NR (09:45)
[2022-03-06] MEDS: DICYCLOMINE HCL 20 MG TAB PO SCH ×2 (11:59→16:04)
[2022-03-06 14:03] LABS: WBC,FECAL (FECAL LACTOFERRIN) NEGATIVE (NEGATIVE)
[2022-03-06] MEDS ORDERED: POTASSIUM CHLORIDE 20 MEQ TAB CR PO NR (16:30)
[2022-03-06] MEDS: DULOXETINE HCL 30 MG DELAYED RELEASE PO SCH (16:49)
[2022-03-06] MEDS ORDERED: METOPROLOL SUCCINATE 25 MG TAB XL PO SCH (17:00)
[2022-03-06] MEDS: ATORVASTATIN 40 MG TAB PO SCH (20:43)
[2022-03-06] MEDS: LOSARTAN POTASSIUM 100 MG TAB PO SCH (20:58)
[2022-03-07] VITALS: BP 103/61
[2022-03-07] MEDS: ONDANSETRON HCL INJ 2MG/ML 2ML 2 MG/ML VIAL IV PRN ×3 (00:57→23:26)
[2022-03-07 04:00] VITALS: BP 139/78
[2022-03-07] MEDS: METRONIDAZOLE 500MG/NS 100ML 100 ML IV SCH ×4 (05:31→23:25)
[2022-03-07] MEDS: LEVOTHYROXINE SODIUM 75 MCG TAB PO SCH (05:31)
[2022-03-07 07:43] LABS: ANION GAP 20.2 mmol/L (8-16); CALCIUM 9.2 mg/dL (8.4-10.2); CREATININE, SERUM 0.85 mg/dL (0.57-1.11); MAGNESIUM 1.2 MG/DL (1.3-2.1); POTASSIUM 3.2 mmol/L (3.5-5.1)
[2022-03-07] MEDS: FOLIC ACID 1 MG TAB PO SCH (08:40)
[2022-03-07] MEDS: METOCLOPRAMIDE HCL 10 MG/2ML VIAL IV SCH ×4 (08:40→21:39)
[2022-03-07] MEDS: CYANOCOBALAMIN INJ 1,000 MCG/ML VIAL IM SCH (08:40)
[2022-03-07] MEDS: DULOXETINE HCL 30 MG DELAYED RELEASE PO SCH ×2 (08:40→16:37)
[2022-03-07] MEDS: DICYCLOMINE HCL 20 MG TAB PO SCH ×3 (08:40→16:37)
[2022-03-07] MEDS: CLOPIDOGREL BISULFATE 75 MG TAB PO SCH (08:40)
[2022-03-07] MEDS: METOPROLOL TARTRATE 25 MG TAB PO SCH ×2 (08:57→16:38)
[2022-03-07] MEDS ORDERED: POTASSIUM CHLORIDE 20 MEQ TAB CR PO NR (14:42)
[2022-03-07] MEDS ORDERED: MAGNESIUM SULF 1GRAM/DEXTROSE 100 ML IV ONE (14:45)
[2022-03-07 17:38] VITALS: BP 107/75
[2022-03-07 19:25] VITALS: BP 140/83
[2022-03-07 20:00] VITALS: BP 140/83
[2022-03-07] MEDS: ATORVASTATIN 40 MG TAB PO SCH (21:40)
[2022-03-07] MEDS: LOSARTAN POTASSIUM 100 MG TAB PO SCH (21:41)
[2022-03-08] VITALS (8 sets, daily range): BP systolic 129–152; BP diastolic 73–93
[2022-03-08] MEDS: METRONIDAZOLE 500MG/NS 100ML 100 ML IV SCH ×2 (05:16→11:46)
[2022-03-08] MEDS: LEVOTHYROXINE SODIUM 75 MCG TAB PO SCH (05:23)
[2022-03-08] MEDS: ONDANSETRON HCL INJ 2MG/ML 2ML 2 MG/ML VIAL IV PRN ×3 (06:59→20:48)
[2022-03-08] MEDS: METOCLOPRAMIDE HCL 10 MG/2ML VIAL IV SCH ×2 (08:25→11:46)
[2022-03-08] MEDS: METOPROLOL TARTRATE 25 MG TAB PO SCH ×2 (08:26→16:38)
[2022-03-08] MEDS: DULOXETINE HCL 30 MG DELAYED RELEASE PO SCH ×2 (08:26→16:38)
[2022-03-08] MEDS: CYANOCOBALAMIN INJ 1,000 MCG/ML VIAL IM SCH (08:26)
[2022-03-08] MEDS: FOLIC ACID 1 MG TAB PO SCH (08:27)
[2022-03-08] MEDS: DICYCLOMINE HCL 20 MG TAB PO SCH ×3 (08:27→16:38)
[2022-03-08] MEDS: CLOPIDOGREL BISULFATE 75 MG TAB PO SCH (09:00)
[2022-03-08 13:55] LABS: MAGNESIUM 1.5 MG/DL (1.3-2.1); POTASSIUM 4.2 mmol/L (3.5-5.1)
[2022-03-08] MEDS ORDERED: PROTONIX20 MG PO (16:03)
[2022-03-08] MEDS ORDERED: REGLAN5 MG PO (16:03)
[2022-03-08] MEDS ORDERED: METOCLOPRAMIDE HCL 10 MG TAB PO SCH (17:00)
[2022-03-08] MEDS: ATORVASTATIN 40 MG TAB PO SCH (20:47)
[2022-03-08] MEDS: LOSARTAN POTASSIUM 100 MG TAB PO SCH (20:48)
[2022-03-08] MEDS: METOCLOPRAMIDE HCL 10 MG TAB PO SCH (20:48)
[2022-03-08] MEDS ORDERED: CYANOCOBALAMIN INJ 1,000 MCG/ML VIAL IM STA (22:26)
[2022-03-09] VITALS: BP 141/87
[2022-03-09 04:00] VITALS: BP 155/91
[2022-03-09] MEDS: LEVOTHYROXINE SODIUM 75 MCG TAB PO SCH (05:02)
[2022-03-09] MEDS: METOCLOPRAMIDE HCL 10 MG TAB PO SCH (05:02)
[2022-03-09] MEDS ORDERED: PANTOPRAZOLE SOD 40 MG TABEC PO SCH (07:30)
[2022-03-09 07:44] VITALS: BP 156/88
[2022-03-09 08:21] VITALS: BP 156/88
[2022-03-09] MEDS ORDERED: CYANOCOBALAMIN INJ 1,000 MCG/ML VIAL IM SCH (09:00)
== END 2022-03-09 09:27 | disposition home or self-care (01) | DRG 872 ==
LOC: EEVIPCON 15:34 → ER 15:45 → ERHOLD 19:06 → MERGE 19:06 → MED/SURG2 20:45
PROVIDERS: ADMIT Internal Medicine; ATTEND Internal Medicine
DX: A41.9 Sepsis, unspecified organism (principal); N17.9 Acute kidney failure, unspecified; K57.92 Diverticulitis of intestine, part unspecified, without perforation or abscess without bleeding; R65.20 Severe sepsis without septic shock; I10 Essential (primary) hypertension; E11.9 Type 2 diabetes mellitus without complications; E78.5 Hyperlipidemia, unspecified; E87.6 Hypokalemia; E83.42 Hypomagnesemia; J45.909 Unspecified asthma, uncomplicated; K21.00 Gastro-esophageal reflux disease with esophagitis, without bleeding; M19.90 Unspecified osteoarthritis, unspecified site; R16.0 Hepatomegaly, not elsewhere classified; D52.9 Folate deficiency anemia, unspecified; D51.9 Vitamin B12 deficiency anemia, unspecified; G89.29 Other chronic pain; E03.9 Hypothyroidism, unspecified; Z88.8 Allergy status to other drugs, medicaments and biological substances; Z79.899 Other long term (current) drug therapy; Z88.2 Allergy status to sulfonamides; Z79.84 Long term (current) use of oral hypoglycemic drugs; Z87.19 Personal history of other diseases of the digestive system; Z86.73 Personal history of transient ischemic attack (TIA), and cerebral infarction without residual deficits; Z90.49 Acquired absence of other specified parts of digestive tract; Z90.710 Acquired absence of both cervix and uterus; Z90.89 Acquired absence of other organs; Z98.890 Other specified postprocedural states; Z94.7 Corneal transplant status
CPT/HCPCS: 36415; 71045; 74177; 80048; 80053; 81001; 82550; 82553; 82607; 82746; 82948; 83540; 83605; 83630; 83690; 83735; 84132; 84466; 84484; 85025; 85045; 87040; 87086; 87324; 87449; 93005; 94799; 96361; 99251; 99284; J2405; J2543; J2765; J3420; J3475; J7030; Q9967

== ENCOUNTER → 2023-02-22 | Outpatient (REF) | payer MEDICARE, BC ==
[~2023-02-22] MED LIST changes: +AMLODIPINE BESY10 MG PO; +ATORVASTATIN CA40 MG PO; +DICYCLOMINE HCL10 MG PO; +DULOXETINE HCL30 MG PO; +FENOFIBRATE54 MG PO; +JANUVIA50 MG PO; +LOSARTAN POTAS100 MG PO; +METOPROLOL SUCC25 MG PO; +MYRBETRIQ25 MG PO; +NEURONTIN300 MG PO; +ONDANSETRON HCL8 MG PO; +PROTONIX20 MG PO; +REGLAN5 MG PO; +SUCRALFATE1 GM PO; +SYNTHROID150 MCG PO
== END ==
LOC: MAMMO 13:45
PROVIDERS: ATTEND Internal Medicine
DX: Z12.31 Encounter for screening mammogram for malignant neoplasm of breast (principal)
CPT/HCPCS: 77067